=== PATIENT | male | born 1975 ===

== ENCOUNTER 2016-10-18 21:54 | Emergency (ER) | payer SELFPAY ==
[2016-10-18 22:06] VITALS: BP 179/105
[2016-10-18] MEDS ORDERED: HYDROcodone/ACETAMIN 5-325 MG* 1 TAB PO ONE (22:29)
[2016-10-18] MEDS ORDERED: Penicillin VK TAB* 250 MG PO ONE (22:29)
--- NOTE | 2016-10-18 22:30 | ED ---
Dipika Solares Anna, scribed for Monique Chambers MD on 10/18/16 at 2227 . Throat Pain/Nasal Congestion - HPI Summary HPI Summary: Patient is a 41 y/o male coming to [facility] presenting with sudden onset of constant dental pain on the right side of his mouth that began three days ago. Today the pain is much worse. He describes the severity of the pain as 5/10. - History of Current Complaint Chief Complaint: EDDentalPain Time Seen by Provider: 10/18/16 22:17 Hx Obtained From: Patient Onset/Duration: Sudden Onset, Still Present - Allergies/Home Medications Allergies/Adverse Reactions: Allergies Allergy/AdvReac Type Severity Reaction Status Date / Time No Known Allergies Allergy Verified 05/05/13 05:29 PMH/Surg Hx/FS Hx/Imm Hx Previously Healthy: Yes Cardiovascular History: Denies: Hx Hypertension - Immunization History Date of Tetanus Vaccine: 05/05/13 Infectious Disease History: No Infectious Disease History: Denies: Traveled Outside the in Last 30 Days - Family History Known Family History: Negative: Hypertension - Social History Occupation: Employed Full-time Lives: Alone Alcohol Use: Occasionally Hx Substance Use: No Substance Use Type: Reports: None Hx Tobacco Use: Yes Review of Systems Positive: Dental Pain Psychological: Normal All Other Systems Reviewed And Are Negative: Yes Physical Exam Triage Information Reviewed: Yes Vital Signs On Initial Exam: Initial Vitals Temp Pulse Resp BP Pulse Ox 98.6 F 85 18 179/105 100 10/18/16 22:03 10/18/16 22:03 10/18/16 22:03 10/18/16 22:03 10/18/16 22:03 Vital Signs Reviewed: Yes Appearance: Positive: Well-Appearing, No Pain Distress Skin: Positive: Warm, Skin Color Reflects Adequate Perfusion, Dry Eyes: Positive: EOMI, CHRISTIAN ENT: Positive: Pharynx normal, TMs normal, Other - No facial swelling. Negative : Trismus Dental: Positive: Other - Some swelling around tooth 26 Neck: Positive: Supple, Nontender Respiratory/Lung Sounds: Positive: Clear to Auscultation, Breath Sounds Present. Negative: Rales, Rhonchi, Wheezes Cardiovascular: Positive: RRR, Other - no gallops. Negative: Murmur, Rub Abdomen Description: Positive: Nontender, Soft Bowel Sounds: Positive: Present Musculoskeletal: Positive: Strength/ROM Intact. Negative: Edema Left, Edema Right Neurological: Positive: Sensory/Motor Intact, Alert, Oriented to Person Place, Time, CN Intact II-III - II-XII Psychiatric: Positive: Affect/Mood Appropriate Diagnostics - Vital Signs Vital Signs Temp Pulse Resp BP Pulse Ox 10/18/16 22:03 98.6 F 85 18 179/105 100 - Laboratory Lab Statement: Any lab studies that have been ordered have been reviewed, and results considered in the medical decision making process. EENT Course/Dx - Course Course Of Treatment: no trismus no facial swelling - Diagnoses Provider Diagnoses: Pain, dental Discharge - Discharge Plan Condition: Stable Disposition: HOME Prescriptions: HYDROcodone/ACETAMIN 5-325 MG* [[place] 5-325 TAB*] 1 tab PO Q4H PRN #14 tab MDD 6 PRN Reason: Pain Penicillin VK TAB* [Penicillin VK 250 mg Tab*] 500 mg PO QID #26 tab Patient Education Materials: Penicillin V (By mouth), Hydrocodone/ Acetaminophen (By mouth) Referrals: [facility] [facility] [Outside] Additional Instructions: Follow up with a dentist within 48 hours. Return to the emergency department for any new or worsening symptoms. The documentation as recorded by the Dipika phelps Anna accurately reflects the service I personally performed and the decisions made by , Monique Chambers MD.
== END 2016-10-18 22:55 | disposition home or self-care (01) ==
LOC: ED 21:54
DX: K08.89 Other specified disorders of teeth and supporting structures (principal)
CPT/HCPCS: 99282; A9270-GY